=== PATIENT | male | born 1975 | race Caucasian/White ===

== ENCOUNTER 2018-02-10 23:11 | Emergency (ER) | payer SELFPAY ==
[~2018-02-10] VITALS: Ht 175.3 cm; Wt 86.0 kg
[2018-02-11 03:05] VITALS: BP 112/68
== END 2018-02-11 05:11 | disposition home or self-care (01) ==
LOC: ER 23:11
DX: F10.129 Alcohol abuse with intoxication, unspecified (principal); Y90.8 Blood alcohol level of 240 mg/100 ml or more; R03.0 Elevated blood-pressure reading, without diagnosis of hypertension; Y93.84 Activity, sleeping; Y92.488 Other paved roadways as the place of occurrence of the external cause
CPT/HCPCS: 36415; 99284; G0482